=== PATIENT | female | born 1950 | race Caucasian/White ===

== ENCOUNTER 2021-07-30 09:35 | Emergency (ER) | payer MEDICARE ==
[2021-07-30 11:14] LABS: HEMOGLOBIN 13.4 gm/dl (12.3-15.3); RED BLOOD COUNT 4.34 M/UL (4.00-5.10); WHITE BLOOD COUNT 10.5 K/UL (4.5-11.0)
[2021-07-30 11:35] LABS: BUN/CREATININE RATIO 13 (0-10)
[2021-07-30] MEDS ORDERED: BENTYL 20MG TAB20 MG PO (13:31)
== END 2021-07-30 13:57 | disposition home or self-care (01) ==
LOC: ER1 09:35
PROVIDERS: Physician Assistant
DX: B34.9 Viral infection, unspecified (principal); Z20.822 Contact with and (suspected) exposure to COVID-19; E78.5 Hyperlipidemia, unspecified; I10 Essential (primary) hypertension; Z90.710 Acquired absence of both cervix and uterus; Z88.1 Allergy status to other antibiotic agents; Z88.5 Allergy status to narcotic agent
CPT/HCPCS: 71045; 80053; 81001; 85025; 96374; 99283; J2405; J7030; U0002

== ENCOUNTER 2022-02-24 12:37 | Emergency (ER) | payer MEDICARE ==
[~2022-02-24 12:37] MED LIST: BENTYL 20MG TAB20 MG PO
[2022-02-24 13:01] LABS: HEMOGLOBIN 12.3 gm/dl (12.3-15.3); RED BLOOD COUNT 3.96 M/UL (4.00-5.10); WHITE BLOOD COUNT 9.1 K/UL (4.5-11.0)
[2022-02-24 13:26] LABS: BUN/CREATININE RATIO 15 (0-10)
[2022-02-24] MEDS ORDERED: HEARTBURN PREVE20 MG PO (17:07)
[2022-02-24] MEDS ORDERED: CARAFATE 1 GM TA1 GM PO (17:07)
[2022-02-24] MEDS ORDERED: OMEPRAZOLE40 MG PO (17:07)
== END 2022-02-24 18:12 | disposition home or self-care (01) ==
LOC: ER1 12:37
DX: K21.00 Gastro-esophageal reflux disease with esophagitis, without bleeding (principal); E78.5 Hyperlipidemia, unspecified; I10 Essential (primary) hypertension; Z90.710 Acquired absence of both cervix and uterus
CPT/HCPCS: 71046; 71275; 80053; 82550; 82553; 84484; 85025; 93005; 96374; 99285; C9113; Q9967